=== PATIENT | female | born 1965 | race Caucasian/White ===

== ENCOUNTER 2020-12-24 13:02 | Outpatient (CLI) | payer BC, OTHER, SELFPAY ==
--- NOTE | ~2020-12-24 | US_ITS ---
EXAMINATION: US pelvic complete DATE: 12/24/2020 13:29 INDICATION: Uterine hypertrophy. Irregular bleeding. Comparison:No prior studies for comparison. TECHNIQUE: Multiple transabdominal sonographic images of the pelvis performed. FINDINGS: The uterus measures 10.5 x 7.1 x 5.2 cm. There is a hypoechoic uterine mass measuring 4.7 x 4.7 x 3.9 cm, compatible with fibroid. The endometrial complex measures 6.5 mm. The ovaries are not visualized. There is no free fluid in the pelvis. There are no abnormal masses seen on either side. IMPRESSION: 1. If the patient is postmenopausal there is endometrial thickening. Clinically correlate. The differ ential diagnosis includes endometrial hyperplasia, polyp and carcinoma. Biopsy would be recommended. 2: Enlarged uterus containing a 4.7 cm uterine fibroid. Reviewed, dictated and finalized at location B. IMPRESSION: 1. If the patient is postmenopausal there is endometrial thickening. Clinically correlate. The differential diagnosis includes endometrial hyperplasia, polyp and carcinoma. Biopsy would be recommended. 2: Enlarged uterus containing a 4.7 cm uterine fibroid.
== END 2020-12-24 13:03 | disposition home or self-care (01) ==
PROVIDERS: PCP Family Medicine; Visit Provider Family Medicine
DX: N85.2 Hypertrophy of uterus (principal)
CPT/HCPCS: 76856

== ENCOUNTER → 2021-01-05 11:05 | Outpatient (CLI) | payer BC, SELFPAY ==
--- NOTE | ~2021-01-05 | MM_ITS ---
EXAMINATION: MM screening [facility] BI w vicky HISTORY: Screening mammogram TECHNIQUE: Craniocaudal and mediolateral oblique 3-D tomosynthesis images were obtained and synthetic 2-D images were generated. CAD analysis was submitted and interpreted. COMPARISON: 06/07/2013 BREAST PARENCHYMAL COMPOSITION: The breasts are heterogeneously dense, which may obscure small masses . FINDINGS: RIGHT BREAST: There is a possible mass in the middle/posterior third of the lower-outer breast best a ppreciated 11 cm from the nipple LEFT BREAST: There is no evidence of suspicious mass, calcification, or architectural distortion to s uggest malignancy. There has been no significant interval change. IMPRESSION: 1. Possible right breast mass. 2. Additional mammographic views and possible breast ultrasound are recommended. BI-RADS Category 0: Incomplete: Needs additional imaging evaluation. Reviewed, dictated and finalized at location A. IMPRESSION: 1. Possible right breast mass. 2. Additional mammographic views and possible breast ultrasound are recommended . BI-RADS Category 0: Incomplete: Needs additional imaging evaluation.
== END ==
PROVIDERS: PCP Family Medicine; Visit Provider Family Medicine
DX: Z12.31 Encounter for screening mammogram for malignant neoplasm of breast (principal); R92.8 Other abnormal and inconclusive findings on diagnostic imaging of breast
CPT/HCPCS: 77063; 77067

== ENCOUNTER 2021-01-21 08:05 | Outpatient (CLI) | payer BC, OTHER, SELFPAY | END 2021-01-21 08:06 | disposition home or self-care (01) | LOC: ANHSURGERY 08:09 | PROVIDERS: PCP Family Medicine; Visit Provider Obstetrics & Gynecology | DX: Z01.812 Encounter for preprocedural laboratory examination (principal); N85.2 Hypertrophy of uterus | CPT/HCPCS: 36415; 86850; 86900; 86901 ==

== ENCOUNTER 2021-01-25 00:44 | Day surgery (SDC) | payer BC, OTHER, SELFPAY ==
[2021-01-16 11:39] VITALS: BMI 29.9
--- NOTE | 2021-01-23 07:34 | P.HP_ITS ---
H&P: HPI History of Present Illness Date/Time: 01/23/21 07:34 55-year-old female 3 para 3 admitted for robotic total vaginal hysterectomy and bilateral salpingo-oophorectomy secondary to postmenopausal bleeding fibroids and enlarged uterus. She complains of pain discomfort and dyspareunia ultrasound showed a large fibroid. Her endometrial lining was biopsied and negative. Pap smear was not risks and benefits reviewed including but not exclusive of , aspiration pneumonia, bleeding, transfusion, perforation injury to bowel, bladder, ureters, or other internal organs with need for open laparotomy. Thromboembolic phenomena also reviewed. she received the [employer] handout entitled hysterectomy as well as the div and she handout. She had all questions answered and asked to proceed Chief Complaint: enlarged uterus/ pelvic pain/ postmenopausal bleeding Review of Systems Review of Systems: All systems reviewed & are unremarkable except as noted in HPI and below PMFSH Family History Family History Mother Patient's mother is Father Patient's father is Other Family history of cardiovascular disease Hypertension Social History Social History Smoking status: Never smoker Alcohol intake: never Substance use: never Substance use type: does not use Spiritual care concerns: No Meds Home Medications and Allergies Home Medications Medication Instructions Recorded Confirmed Type minocycline 100 mg PO DAILY PRN 01/16/21 01/16/21 History multivitamin 1 tablet PO DAILY 01/16/21 01/16/21 History Allergies Allergy/AdvReac Type Severity Reaction Status Date / Time penicillin V Allergy Severe Hives Verified 01/16/21 11:38 Penicillins Allergy Severe Hives Verified 01/16/21 11:38 Exam Const: General: no acute distress Eyes: General: appearance normal, both eyes and all related structures Neck: Neck: supple and no JVD Thyroid: thyroid normal Resp: Effort & Inspection: normal respiratory effort Auscultation: clear to auscultation bilaterally Cardio: Rate: regular rate Rhythm: regular rhythm GI: Inspection: non-distended GI Palp: Yes Soft to palpation, No Tenderness to palpation present (GI) and No Guarding due to palpation present (GI) Auscultation: normal bowel sounds : External Female Exam: normal external appearance Speculum Exam - V agina: normal appearance of the vagina Speculum Exam - Cervix: normal appearance of the cervix Bimanual exam- vagina & uterus: enlarged and Uterine tenderness Bimanual Exam- Adnexa, other: normal adnexae Skin: General skin exam: no rashes or lesions noted Extrem: General: normal to inspection and no edema Psych: Mental Status: mental status grossly normal Affect: normal affect Assessment and Plan Additional Plan impression: Uterine fibroids and postmenopausal bleeding with benign findings /pelvic pain Plan: Robotic total vaginal hysterectomy and bilateral salpingo-oophorectomies
[2021-01-25] VITALS (20 sets, daily range): BP systolic 90–112; BP diastolic 52–69; PULSE 54–85; RESP 11–18; TEMP 35.9–36.9; O2SAT 96–100; BMI 30.2
--- NOTE | 2021-01-25 06:23 | WPDHPUPDATE1 ---
History and Physical Update Update Date/Time: 01/25/21 06:23 History and Physical has been reviewed, including an updated exam of the patient. There are NO changes in the patient's condition. Risks, benefits, and alternatives have been discussed and questions answered. Patient agrees to proceed with procedure.
[2021-01-25] MEDS: ACETAMINOPHEN 500 MG TABLET 1000 MG PO (08:42)
[2021-01-25] MEDS: LACTATED RINGERS 1,000 ML 30 ML IV CONT ×3 (08:42→13:04)
[2021-01-25] MEDS: KETOROLAC 15 MG/ML VIAL (*BKC) IV PUSH (08:43)
--- NOTE | 2021-01-25 08:54 | WPDANESEPPF ---
Anes - Initial Pre Proc Eval Procedure: Operation Date: 01/25/21 10:00 Proposed Procedures p Robotic Assisted Total Vaginal Hysterectomy, Bilateral Salpingo-Oophorectomy - Kashif Lopez MD Date/Time: 01/25/21 08:54 Surgeon: Kashif Lopez MD Pre Op Diagnosis: enlarge uterus, fibroids, post jun bleeding, pain Patient Data Age: 55 Gender: F Height: 5 ft 3 in Weight: 77.3 kg Last Vital Signs Temp 36.3 C L 01/25/21 08:32 Pulse 85 01/25/21 08:32 Resp 18 01/25/21 08:32 BP 110/69 01/25/21 08:32 Pulse Ox 100 01/25/21 08:32 Allergies Allergy/AdvReac Type Severity Reaction Status Date / Time penicillin V Allergy Severe Hives Verified 01/25/21 08:06 Penicillins Allergy Severe Hives Verified 01/25/21 08:06 Home Medications Medication Instructions Recorded Confirmed Type minocycline 100 mg PO DAILY PRN 01/16/21 01/25/21 History multivitamin 1 tablet PO DAILY 01/16/21 01/25/21 History hydrocodone-acetaminophen 1 tablet PO Q4H PRN #30 tablet 01/25/21 Rx Patient hx anesthesia problems: none Family hx anesthesia problems: none PMFSH Family History Family History Mother Patient's mother is Father Patient's father is Other Family history of cardiovascular disease Hypertension Social History Social History Smoking status: Never smoker Alcohol intake: never Substance use: never Substance use type: does not use Living arrangements: alone Spiritual care concerns: No Anes - Eval Final PreProcedure Day of Procedure 01/25/21 08:54 Patient weight: obese Heart: regular rate and rhythm Lungs: clear to auscultation Airway: Mallampati scale class II Neurological: alert and oriented Last oral intake: >/= 8 hours ASA classification: II Emergent: no Anesthetic plan: proceed Anesthesia type and monitoring: general ETT and standard monitoring Informed Consent: The patient's anesthetic plan and its attendant risks and benefits were discussed with the patient/family/POA. Questions were solicited and answers provided to the satisfaction of the patient/family/POA.
[2021-01-25] MEDS: GENTAMICIN SULFATE INJ 320 MG in DEXTROSE 5% 100 ML 100 MG IVPB (09:41)
[2021-01-25] MEDS: CLINDAMYCIN 900 MG/D5W 50 ML 900 MG/50 ML PIGGYBACK 50 MG IVPB (09:41)
--- NOTE | 2021-01-25 10:41 | PM.PROC ---
Procedure Note - Detailed Date of procedure: 01/25/21 Pre-op diagnosis: enlarge uterus, fibroids, post jun bleeding, pain Surgeon: Kashif Lopez MD Postop diagnosis: Enlarged uterus/uterine fibroids/postmenopausal bleeding with benign endometrial findings/pelvic pain Procedure: Robotic total vaginal hysterectomy and bilateral salpingo-oophorectomies. Anesthesia: General endotracheal EBL: 25cc Findings: Enlarged fibroid uterus. Tubes status post tubal ligation. Normal-appearing ovaries bilaterally. Complications: None Description of procedure: The patient was prepped and draped in the normal sterile fashion and placed in the dorsal lithotomy position. Under excellent general endotracheal anesthesia weighted speculum placed in posterior fornix vagina. Anterior lip of the cervix grasped with a single-tooth tenaculum and the uterus sounded to 10cm. Serial dilatation with fragmented dilators performed followed by passage of the 10. MARGRAITA and the 3. Cold cup. Next the 16 [place] catheter was placed in the bladder. Clear urine was was noted to be draining. The weighted speculum in remainder the instruments were removed. The gloves were changed Supraumbilical incision made in the [place] needle passed in the abdomen. The abdomen filled with CO2 gas [id number]. The 8mm trocar advanced in the abdomen. The downside was visualized and no injury seen. The patient placed in Trendelenburg and a supra pubic incision was made the right left lateral quadrant incisions. These were entered by sharp dissection and assure no injury. A right upper quadrant incision made in the 8mm trocar advanced under direct visualization assuring no injury. The robot was docked. Attention was turned to the university counselor. The uterus was noted to be a fibroid and irregular in nature. The tubes were status post tubal ligation. The left round ligament was grasped, burned, cut. Anteriorly bladder flap was formed by sharply dissecting the bladder away from the uterus and cervix and pushing this caudally to the opposite round ligament was clamped, burned, cut. Next the left infundibulopelvic structure was skeletonized to remove the left ovary and tube. This was clamped, burned, cut and brought to the level of the previously cut round ligament. In like fashion removed the tube and ovary on the right the infundibulopelvic structure was skeletonized. This was clamped, burned, cut and brought to the level of the previously cut round ligament. The left cardinal and broad ligaments were then serially skeletonized away from the cyst cervix and uterus these were clamped, burned, cut and brought down the lateral edge until the uterine vessels could be seen. These were large and tortuous. Each was individually clamped, burned, cut until the blood supply was controlled. In like fashion the cardinal and broad ligaments on the right were serially skeletonized. These were clamped, burned, cut and brought down the lateral edge of the cervix and uterus until the uterine vessels could be seen on the right these were individually clamped, burned, cut. Blanching was noted to the uterus. A colpotomy incision was made in the cervix uterus ovaries and portions of tube were removed through the vagina. Blood loss estimated 25cc. The vagina was closed with continuous running 0V lock from lateral edge to lateral edge back to the midline. Irrigation undertaken to clear and [place] derm was sprinkled over the raw surface area. Hemostasis was assured and the robot was undocked. The gas removed from the abdomen and the trocars removed. The incisions were closed with 4 Monocryl and glue. Patient was awakened and went to recovery in satisfactory condition. All sponge, needle, instrument counts were correct. There were no immediate complications
[2021-01-25] MEDS: fentaNYL CITRATE INJ (*CRX) 100 MCG/2 ML VIAL 25 MCG IV PUSH ×4 (11:05→11:58)
[2021-01-25] MEDS: DEXTROSE 5%/LACTATED RINGERS 1,000 ML 125 ML IV CONT (14:21)
[2021-01-25] MEDS: KETOROLAC 30 MG/ML VIAL (*BKC) IV PUSH ×2 (14:24→21:50)
[2021-01-25] MEDS: HYDROcodone/acetaminophen (*CRX) 5-325 MG TABLET 1 TAB PO ×3 (16:13→23:40)
--- NOTE | 2021-01-25 19:19 | PC.NURSE ---
1325 pt admitted to room 279 per stretcher from PACU after Robotic surgery today with Dr. Maricruz Kuo. Pt awake, sleepy, but responding appropriately. Oriented to room, staffing and procedures. VSS and assessment WNL. Pt's friend with her. Admission folder reviewed.
[2021-01-25] MEDS: SIMETHICONE 80 MG TAB.CHEW PO (23:39)
[2021-01-26 04:30] VITALS: BP 96/56; PULSE 53; RESP 16; TEMP 36.4; O2SAT 100
[2021-01-26 04:54] LABS: Basophils Percent Auto 0.1 % (0.2-1.2); Hematocrit 32.6 % (37.0-47.0); Hemoglobin 10.8 g/dL (12.0-15.0); Immature Granulocyte Absolute 0.05 K/mm3 (0.00-0.031); Immature Granulocyte Percent A 0.6 % (0-0.5); Lymphocytes Absolute Auto 1.79 K/mm3 (0.9-3.2); Lymphocytes Percent Auto 19.7 % (18.3-44.2); Mean Corpuscular HGB Conc 33.1 g/dl (32-36); Mean Corpuscular Hemoglobin 28.1 pg (26-34); Mean Corpuscular Volume 84.9 fl (80-100); Mean Platelet Volume 9.7 fl (7.4-10.4); Monocytes Absolute Auto 0.3 K/mm3 (0.1-0.6); Monocytes Percent Auto 3.7 % (2.6-8.5); Neutrophils Absolute Auto 6.9 K/mm3 (1.3-6.7); Neutrophils Percent Auto 75.9 % (45.5-73.1); Platelet Count Result 214 k/mm3 (150-375); Red Blood Count 3.84 M/mm3 (4.2-5.4); Red Cell Distribution Width 13.4 % (11.5-14.5); White Blood Count 9.1 K/mm3 (4.5-10.0)
--- NOTE | 2021-01-26 07:18 | P.DS_ITS ---
DS: Admitting Diagnosis Admitting Diagnosis Admitting Diagnosis: Postmenopausal bleeding/ enlarged uterus with fibroids DS: Summary Hospital Course Hospital Course: patient was admitted for robotic total vaginal hysterectomy and bilateral salpingo-oophorectomy. The procedure was unremarkable. Please see the operative report for full details. Her hospital course was unremarkable. She remained afebrile. She was up, ambulating, voiding without difficulty, eating regular diet, and generally without complaints Time Spent with Patient Time attestation: Total time spent providing and/or coordinating discharge services: Exam Const: General: no acute distress Eyes: General: appearance normal, both eyes and all related structures Neck: Neck: supple and no JVD Thyroid: thyroid normal Resp: Effort & Inspection: normal respiratory effort Auscultation: clear to auscultation bilaterally Cardio: Rate: regular rate Rhythm: regular rhythm GI: Inspection: non-distended GI Palp: Yes Soft to palpation, No Tenderness to palpation present (GI) and No Guarding due to palpation present (GI) Auscultation: normal bowel sounds : General: Yes bladder normal to palpation External Female Exam: normal external appearance Speculum Exam - Vagina: normal vaginal discharge and No vaginal bleeding Speculum Exam - Cervix: nontender Bimanual exam- vagina & uterus: bladder normal to palpation and No Cervical tenderness present OB/external & speculum: No vaginal bleeding Skin: General skin exam: no rashes or lesions noted Extrem: General: normal to inspection and no edema Psych: Mental Status: mental status grossly normal Affect: normal affect DS: Data Data Completed and Pending Pending studies at discharge: Pending at discharge 01/25/21 10:14 Surgical [PTH] Routine Labs on day of discharge: Labs from last 24 hours 01/26/21 04:28 WBC 9.1 RBC 3.84 L Hgb 10.8 L Hct 32.6 L MCV 84.9 MCH 28.1 MCHC 33.1 RDW 13.4 Plt Count 214 MPV 9.7 Immature Gran % (Auto) 0.6 H Neut % (Auto) 75.9 H Lymph % (Auto) 19.7 [place] % (Auto) 3.7 Eos % (Auto) 0.0 Baso % (Auto) 0.1 L Lymph # (Auto) 1.79 [place] # (Auto) 0.3 Eos # (Auto) 0.0 Baso # (Auto) 0.0 Abs Immat Gran (auto) 0.05 H Absolute Neuts (auto) 6.9 H Absolute Nucleated RBC 0.0 Nucleated RBC % 0.0 Discharge Plan Discharge Patient Disposition: Home, Self-Care Stand Alone Forms: General Discharge Instructions Follow-up/Referrals: Kashif Lopez MD [Physician] - Discharge Medications: New hydrocodone-acetaminophen 5-325 mg tablet 1 tablet PO Q4H PRN (Reason: pain) Qty: 30 RF: 0 No Action multivitamin Tablet 1 tablet PO DAILY RF: 0 minocycline 100 mg capsule 100 mg PO DAILY PRN (Reason: Acne) RF: 0
--- NOTE | 2021-01-26 07:20 | P.PNOB_ITS ---
OB - PN: Subj Subjective Date/time seen: 01/26/21 07:20 Patient comments: no complaints and pain well controlled OB - PN: Obj Data Labs CBC & Chem 7: 01/26/21 04:28 Labs: Laboratory Results - last 24 hr 01/26/21 04:28 WBC 9.1 RBC 3.84 L Hgb 10.8 L Hct 32.6 L MCV 84.9 MCH 28.1 MCHC 33.1 RDW 13.4 Plt Count 214 MPV 9.7 Immature Gran % (Auto) 0.6 H Neut % (Auto) 75.9 H Lymph % (Auto) 19.7 [place] % (Auto) 3.7 Eos % (Auto) 0.0 Baso % (Auto) 0.1 L Lymph # (Auto) 1.79 [place] # (Auto) 0.3 Eos # (Auto) 0.0 Baso # (Auto) 0.0 Abs Immat Gran (auto) 0.05 H Absolute Neuts (auto) 6.9 H Absolute Nucleated RBC 0.0 Nucleated RBC % 0.0 OB - PN A/P Plan day: 1 Plan: discharge home and follow up 6 weeks (2 weeks) Time Spent With Patient Time: Total time spent is greater than 50% in coordination of care (as documented) at patient's floor/unit and/or counseling patient: Time with patient: less than 15 minutes Review of Systems Review of Systems: All systems reviewed & are unremarkable except as noted in HPI and below Exam Const: General: no acute distress Eyes: General: appearance normal, both eyes and all related structures Neck: Neck: supple and no JVD Thyroid: thyroid normal Resp: Effort & Inspection: normal respiratory effort Auscultation: clear to auscultation bilaterally Cardio: Rate: regular rate Rhythm: regular rhythm GI: Inspection: non-distended GI Palp: Yes Soft to palpation, No Tenderness to palpation present (GI) and No Guarding due to palpation present (GI) Auscultation: normal bowel sounds : General: Yes bladder normal to palpation External Female Exam: normal external appearance Speculum Exam - Vagina: normal vaginal discharge and No vaginal bleeding Speculum Exam - Cervix: nontender Bimanual exam- vagina & uterus: bladder normal to palpation and No Cervical tenderness present OB/external & speculum: No vaginal bleeding Skin: General skin exam: no rashes or lesions noted Extrem: General: normal to inspection and no edema Psych: Mental Status: mental status grossly normal Affect: normal affect
--- NOTE | 2021-01-26 08:46 | WPDANESPN ---
Anes - Prog Note Post-Op Date/Time: 01/26/21 08:46 Cardiovascular status: normal Respiratory status: normal Airway patency: baseline Mental status: baseline Post-Op hydration status: normal Vital Signs: Last Vital Signs Temp 36.4 C L 01/26/21 04:30 Pulse 53 L 01/26/21 04:30 Resp 16 01/26/21 04:30 BP 96/56 L 01/26/21 04:30 Pulse Ox 100 01/26/21 04:30 Pain Score (VAS): 4 I/O: Intake & Output 01/25/21 01/26/21 01/26/21 23:59 07:59 15:59 Intake Total 1580 314 Output Total 1400 250 Balance 180 64 Laboratory Tests 01/26/21 04:28 01/26/21 04:28 WBC 9.1 RBC 3.84 L Hgb 10.8 L Hct 32.6 L MCV 84.9 MCH 28.1 MCHC 33.1 RDW 13.4 Plt Count 214 MPV 9.7 Immature Gran % (Auto) 0.6 H Neut % (Auto) 75.9 H Lymph % (Auto) 19.7 [place] % (Auto) 3.7 Eos % (Auto) 0.0 Baso % (Auto) 0.1 L Lymph # (Auto) 1.79 [place] # (Auto) 0.3 Eos # (Auto) 0.0 Baso # (Auto) 0.0 Abs Immat Gran (auto) 0.05 H Absolute Neuts (auto) 6.9 H Absolute Nucleated RBC 0.0 Nucleated RBC % 0.0 Post-procedural complaints: none Patient Feedback: Patient satisfied with anesthetic care.
[2021-01-26] MEDS: SIMETHICONE 80 MG TAB.CHEW PO (09:07)
[2021-01-26] MEDS: HYDROcodone/acetaminophen (*CRX) 5-325 MG TABLET 1 TAB PO ×2 (09:08→13:36)
[2021-01-26] MEDS: IBUPROFEN 600 MG TABLET PO (09:08)
[2021-01-26] MEDS: ENOXAPARIN 40 MG/0.4 ML SYRINGE SUB-Q (09:10)
[2021-01-26 09:31] VITALS: BP 103/61; PULSE 70; RESP 16; TEMP 36.9; O2SAT 100
== END 2021-01-26 13:41 | disposition home or self-care (01) ==
LOC: ANHSURGERY 07:57 → ANHOB2 13:35
PROVIDERS: PCP Family Medicine; Visit Provider Obstetrics & Gynecology
PROC: (CPT 58552; principal; 2021-01-25 10:00)
DX: D25.1 Intramural leiomyoma of uterus (principal); D25.2 Subserosal leiomyoma of uterus; N73.6 Female pelvic peritoneal adhesions (postinfective); N83.01 Follicular cyst of right ovary; D27.0 Benign neoplasm of right ovary; K66.8 Other specified disorders of peritoneum; N80.0 Endometriosis of uterus; E66.9 Obesity, unspecified; Z68.30 Body mass index [BMI] 30.0-30.9, adult
CPT/HCPCS: 58552; S2900; 36415; 85025; 88307; 99199; A9270; J1100; J1580; J1650; J1885; J2250; J2405; J2704; J2710; J3010; J7030; J7120; J7121

== ENCOUNTER 2021-02-08 13:44 | Outpatient (CLI) | payer BC, OTHER, SELFPAY ==
--- NOTE | ~2021-02-08 | MMUS_ITS ---
EXAMINATION: MM diagnostic [facility]ini RT w vicky, US breast RT complete HISTORY: Possible right breast mass, middle/posterior third of lower outer quadrant 11 cm from nipple TECHNIQUE: Additional 3-D tomosynthesis images of the right breast were performed and synthetic 2-D i mages were generated. CAD analysis was submitted and interpreted. High resolution complete right [facility] [facility] ultrasound was performed. COMPARISON: 01/05/2021 bilateral digital screening mammogram 06/07/2013 bilateral digital screening mammogram FINDINGS: MAMMOGRAPHIC FINDINGS: There is a 7 mm circumscribed benign appearing likely lymph node in the other mid right breast at mid depth. ULTRASOUND: At 9:00 6 cm from the nipple there is a circumscribed approximately 3.1 x 4.4 x 7 mm probable lymph n ode with fatty hilum with vascularity. This likely corresponds to the mammographic opacity noted abov e. No suspicious mass or shadowing is detected in the right breast. IMPRESSION: 1. Benign finding 2. Routine mammographic screening is recommended. BI-RADS Category 2: Benign finding(s). Reviewed, dictated and finalized at location A. IMPRESSION: 1. Benign finding 2. Routine mammographic screening is recommended. BI-RADS Category 2: Benign finding(s).
== END 2021-02-08 13:45 | disposition home or self-care (01) ==
PROVIDERS: PCP Family Medicine; Visit Provider Family Medicine
DX: R92.8 Other abnormal and inconclusive findings on diagnostic imaging of breast (principal)
CPT/HCPCS: 76641; 77061; 77065; G0279

== ENCOUNTER 2022-06-28 07:30 | Outpatient (CLI) | payer BC, SELFPAY ==
--- NOTE | ~2022-06-28 | MM_ITS ---
EXAMINATION: MM screening [facility] BI w vicky HISTORY: Screening TECHNIQUE: Craniocaudal and mediolateral oblique 3-D tomosynthesis images were obtained and synthetic 2-D images were generated. CAD analysis was submitted and interpreted. COMPARISON: Comparison to multiple prior studies sequentially, with oldest reviewed study dated 03/2013. BREAST PARENCHYMAL COMPOSITION: Breast composed of scattered areas of fibroglandular density FINDINGS: There is no evidence of suspicious mass, calcification, or architectural distortion to sugg est malignancy in either breast. There has been no suspicious interval change. IMPRESSION: 1. No mammographic evidence of malignancy. 2. Recommend routine screening mammography in one year. BI-RADS Category 1: Negative Reviewed, dictated and finalized at location A.
== END 2022-06-28 07:31 | disposition home or self-care (01) ==
PROVIDERS: PCP Emergency Medicine; Visit Provider Emergency Medicine
DX: Z12.31 Encounter for screening mammogram for malignant neoplasm of breast (principal)
CPT/HCPCS: 77063; 77067

== ENCOUNTER 2024-03-22 13:14 | Outpatient (CLI) | payer OTHER, SELFPAY ==
--- NOTE | ~2024-03-22 | MM_ITS ---
EXAMINATION: MM screening [facility] BI w vicky HISTORY: Screening TECHNIQUE: Craniocaudal and mediolateral oblique 3-D tomosynthesis images were obtained and synthetic 2-D images were generated. CAD analysis was submitted and interpreted. COMPARISON: Comparison to multiple prior studies sequentially, with oldest reviewed study dated 03/2021. BREAST PARENCHYMAL COMPOSITION: Not dense: There are scattered areas of fibroglandular density. FINDINGS: There is no evidence of suspicious mass, calcification, or architectural distortion to sugg est malignancy in either breast. There has been no suspicious interval change. IMPRESSION: 1. No mammographic evidence of malignancy. 2. Recommend routine screening mammography in one year. BI-RADS Category 1: Negative Reviewed, dictated and finalized at location B.
== END 2024-03-22 13:15 | disposition home or self-care (01) ==
PROVIDERS: PCP Emergency Medicine; Visit Provider Emergency Medicine
DX: Z12.31 Encounter for screening mammogram for malignant neoplasm of breast (principal)
CPT/HCPCS: 77063; 77067

== ENCOUNTER 2025-05-24 08:20 | Outpatient (CLI) | payer OTHER, SELFPAY ==
--- NOTE | ~2025-05-24 | MM_ITS ---
EXAMINATION: MM screening [facility] BI w vicky HISTORY: Screening TECHNIQUE: Craniocaudal and mediolateral oblique 3-D tomosynthesis images were obtained and synthetic 2-D images were generated. CAD analysis was submitted and interpreted. COMPARISON: 01/05/2021 BREAST PARENCHYMAL COMPOSITION: The breasts are heterogeneously dense, which may obscure small masses. FINDINGS: There is no evidence of suspicious mass, calcification, or architectural distortion to suggest malignancy. There has been no suspicious interval change. IMPRESSION: 1. No mammographic evidence of malignancy. Recommend routine screening mammography in one year. BI-RADS Category 2: Benign finding(s) Reviewed, dictated and finalized at location Q. IMPRESSION: 1. No mammographic evidence of malignancy. Recommend routine screening mammogra phy in one year. BI-RADS Category 2: Benign finding(s)
== END 2025-05-24 08:21 | disposition home or self-care (01) ==
PROVIDERS: PCP Family Medicine; Visit Provider Family Medicine
DX: Z12.31 Encounter for screening mammogram for malignant neoplasm of breast (principal)
CPT/HCPCS: 77063; 77067

== ENCOUNTER 2025-06-07 09:09 | Outpatient (CLI) | payer OTHER, SELFPAY ==
[2025-06-07 11:03] LABS: Hematocrit 42.4 % (37.0-47.0); Hemoglobin 14.1 g/dL (12.0-15.0); Immature Granulocyte Percent A 0.5 % (0-0.5); Lymphocytes Absolute Auto 1.48 K/mm3 (0.9-3.2); Mean Corpuscular HGB Conc 33.3 g/dl (32-36); Mean Corpuscular Hemoglobin 29.9 pg (26-34); Mean Corpuscular Volume 89.8 fl (80-100); Nucleated Red Blood Cells Absolute Auto 0.000 K/mm3 (0.0-0.012); Nucleated Red Blood Cells Perc 0.0 % (0.0-0.2); Platelet Count Result 223 k/mm3 (150-375); Red Blood Count 4.72 M/mm3 (4.2-5.4); White Blood Count 4.1 K/mm3 (4.5-10.0)
[2025-06-07 11:06] LABS: Alanine Aminotransferase 18 U/L (6-35); Albumin Level 4.2 g/dL (3.5-5.1); Alkaline Phosphatase 73 U/L (38-126); Anion Gap 6 mmol/L (4-12); Aspartate Amino Transferase 46 U/L (14-36); Bilirubin,Total 0.5 mg/dL (0.2-1.3); Blood Urea Nitrogen 13 mg/dL (7-17); Calcium 9.2 mg/dL (8.4-10.2); Carbon Dioxide 28 mmol/L (22-30); Chloride 104 mmol/L (98-107); Cholesterol 216 mg/dL (0-200); Estimated Glomerular Filt Rate > 60; Glucose 78 mg/dL (65-110); HDL Direct 52 mg/dL; Potassium 4.1 mmol/L (3.4-5.0); Sodium 138 mmol/L (137-145); Total Protein 7.2 g/dL (6.3-8.2); Triglycerides 68 mg/dL (<150)
[2025-06-07 11:41] LABS: Thyroid Stimulating Hormone Reflex 1.360 uIU/mL (0.465-4.68)
== END 2025-06-07 09:10 | disposition home or self-care (01) ==
LOC: ANHGOSHLAB 09:10
PROVIDERS: PCP Family Medicine; Visit Provider Family Medicine
DX: E78.5 Hyperlipidemia, unspecified (principal)
CPT/HCPCS: 36415; 80053; 80061; 84443; 85025